=== PATIENT | male | born 1990 | race Caucasian/White ===

== ENCOUNTER → 2021-04-28 14:24 | Outpatient (BNVA) | payer OTHER, SELFPAY | PROVIDERS: Visit Provider Physician Assistant Medical | DX: S57.81XA Crushing injury of right forearm, initial encounter (principal); W24.1XXA Contact with transmission devices, not elsewhere classified, initial encounter | CPT/HCPCS: 73090; 99203 ==

== ENCOUNTER → 2021-05-05 13:53 | Outpatient (BNVA) | payer OTHER, SELFPAY | PROVIDERS: Visit Provider Physician Assistant | DX: S57.81XA Crushing injury of right forearm, initial encounter (principal); W23.0XXA Caught, crushed, jammed, or pinched between moving objects, initial encounter | CPT/HCPCS: 99213 ==